=== PATIENT | male | born 1995 | race Caucasian/White ===

== ENCOUNTER 2022-05-24 14:10 | Emergency (ER) | payer OTHER ==
[2022-05-24] MEDS ORDERED: IBUPROFEN 600 MG TABLET (FP) PO ONE ×2 (14:24→14:29)
[2022-05-24] MEDS ORDERED: METHOCARBAMOL 500 MG TABLET PO ONE (14:24)
[2022-05-24] MEDS ORDERED: METHOCARBAMOL 500 MG TABLET ONE (14:30)
[2022-05-24 14:37] VITALS: BP 133/83; PULSE 89; RESP 20; TEMP 98.3; BMI 40.6
== END 2022-05-24 17:17 | disposition home or self-care (01) ==
LOC: FER 14:10
DX: S46.912A Strain of unspecified muscle, fascia and tendon at shoulder and upper arm level, left arm, initial encounter (principal); X50.0XXA Overexertion from strenuous movement or load, initial encounter
CPT/HCPCS: 73030-TC-LT-FY; 73060-TC-LT-FY; 73070-TC-LT-FY; 73090-TC-LT-FY; 73110-TC-LT-FY; 73130-TC-LT-FY; 99285-25